=== PATIENT | female | born 1995 | race Caucasian/White ===

== ENCOUNTER 2025-05-25 08:48 | Emergency (ER) | payer MEDICAID, OTHER ==
[~2025-05-25] VITALS: Ht 157.5 cm; Wt 53.3 kg
--- NOTE | 2025-05-25 09:08 | ED.PDOC ---
GI ASSESSMENT HPI Comments A 29 YEAR OLD FEMALE PRESENTS TO THE ED WITH COMPLAINT OFBLOWER ABDOMINAL PAIN. PT HAS BEEN HAVING DIFFUSE CRAMPING ABDOMINAL PAIN FOR THE PAST 4-5 DAYS. PT HAS ASSOCIATED VOMITING AND DIARRHEA. PT DENIES SICK CONTACTS OR RECENT DIET CHANGES. PATIENT DENIES FEVER, CHILLS, SHORTNESS OF BREATH, CHEST PAIN, NAUSEA, HEADACHE, OR OTHER COMPLAINTS. NO OTHER SYMPTOMS OR MODIFYING FACTORS AT THIS TIME. PATIENT IS ALERT, ORIENTED X 4, AND HAS STEADY GAIT. Chief Complaint: Abdominal Pain Time Seen by MD: 09:06 Primary Care Provider: ANDRIA Reviewed Notes: Nurses Notes, Medications, Allergies Allergies: Coded Allergies: NO KNOWN ALLERGIES (Unverified , 06/15/15) Information Source: Patient Mode of Arrival: Ambulatory Brought in by: SELF Timing: Days Duration: Since onset, Days Prehospital treatment: None Vomitus: Food Particles Stool: Loose, Watery Severity: Moderate Recent: None Recent Hx of: None Pain Location: RLQ, LLQ, Suprapubic Associated sign and symptoms: Nausea, Vomiting, Diarrhea, Abdominal Pain Past Medical History PAST MEDICAL HISTORY: Denies Surgical History: Denies all surgeries FOSTER WINDER History: Denies all FOSTER WINDER Hx Family History Family History: Reviewed,noncontributory to illness Social History Smoker: Non-Smoker Alcohol: Denies ETOH Use Drugs: Denies Drug Use Lives In: Home Constitutional: denies: chills, diaphoresis, fatigue, fever, malaise, sweats, weakness, others EENTM: denies: blurred vision, double vision, ear bleeding, ear discharge, ear drainage, ear pain, ear ringing, eye pain, eye redness, hearing loss, mouth pain, mouth swelling, nasal discharge, nose bleeding, nose congestion, nose pain, photophobia, tearing, throat pain, throat swelling, voice changes, others Respiratory: denies: cough, hemoptysis, orthopnea, SOB at rest, shortness of breath, SOB with excertion, stridor, wheezing, others Cardiovascular: denies: chest pain, dizzy spells, diaphoresis, Dyspnea on exertion, edema, irregular heart beat, left arm pain, lightheadedness, palpitations, PND, syncope, others Gastrointestinal: reports: abdominal pain, diarrhea, nausea, vomiting; denies: abdomen distended, blood streaked bowels, constipated, dysphagia, difficulty swallowing, hematemesis, melena, poor appetite, poor fluid intake, rectal bleeding, rectal pain, others Genitourinary: denies: abnormal vagina bleeding, burning, dyspareunia, dysuria, flank pain, frequency, hematuria, incontinence, pain, , vagina discharge, urgency, others Neurological: denies: dizziness, fainting, headache, left sided numbness, left sided weakness, numbness, paresthesia, pre-existing deficit, right sided numbness, right sided weakness, seizure, speech problems, tingling, tremors, weakness, others Musculoskeletal: denies: back pain, gout, joint pain, joint swelling, muscle pain, muscle stiffness, neck pain, others Integumetry: denies: bruises, change in color, change in hair/nails, dryness, laceration, lesions, lumps, rash, wounds, others Allergic/Immunocompromised: denies: Difficulty Healing, Frequent Infections, Hives, Itching, others Hematologic/Lymphatic: denies: anemia, blood clots, easy bleeding, easy bruising, swollen glands, others Endocrine: denies: excessive hunger, excessive sweating, excessive thirst, excessive urination, flushing, intolerance to cold, intolerance to heat, unexplained weight gain, unexplained weight loss, others Psychiatric: denies: anxiety, bipolar disorder, depression, hopeless, panic dis order, schizophrenia, sleepless, suicidal, others All Other Systems: Reviewed and Negative Physical Exam General Appearance: No Apparent Distress, Normal HEENT: Normal ENT Inspection, PERRL/EOMI, Pharynx Normal, TMs Normal Neck: Full Range of Motion, Non-Tender, Normal, Normal Inspection Respiratory: Chest Non-Tender, Lungs Clear, No Accessory Muscle Use, No Respiratory Distress, Normal Breath Sounds Cardiovascular: No Edema, No JVD, No Murmur, No Gallop, Normal Peripheral Pulses, Regular Rate/Rhythm Breast Exam: Deferred Gastrointestinal: LLQ, No Organomegaly, No Pulsatile Mass, Normal Bowel Sounds, RLQ, Soft, Tenderness (LOWER ABD, NO GUARDING AND REBOUND TENDERNESS. ) Genitalia: Deferred Pelvic: Deferred Rectal: Deferred Extremities: No calf tenderness, Normal capillary refill, Normal inspection, Normal range of motion, Non-tender, No pedal edema Musculoskeletal : Apperance: Normal Neurologic: Alert, container finishing inspector II-XII nml as Tested, No Motor Deficits, Normal Affect, Normal Mood, No Sensory Deficits Cerebellar Function: Normal Reflexes: Normal Skin: Dry, Normal Color, Warm Peripheral Pulses: 2+ carotid (R), 2+ carotid (L) Lymphatic: No Adenopathy Was a procedure done? Was a procedure done?: No GI differential Dx Differential Diagnosis: Appendicitis, Cholecystitis, Constipation, Gastritis/PUD, Gastroenteritis, Inflammatory BD, Pancreatitis, UTI, Dehydration, Electrolyte Imbalance, Food Poisoning, Bacterial, Viral, Stress Ulcer X-Ray, Labs, Meds, VS Vital Signs Date Time Temp Pulse Resp B/P (MAP) Pulse Ox O2 Delivery O2 Flow Rate FiO2 05/25/25 08:50 97.1 89 15 112/77 100 97.1 Lab Test 05/25/25 09:22 Range/Units White Blood Count 12.4 H 4.4-10.8 10^3/uL Red Blood Count 4.32 4.0-5.20 10^6/uL Hemoglobin 13.0 12.2-16.2 g/dL Hematocrit 38.6 36.0-46.0 % Mean Corpuscular Volume 89.3 80.0-100.0 fL Mean Corpuscular Hemoglobin 30.0 28.0-32.0 pg Mean Corpuscular Hemoglobin Concent 33.6 32.0-36.0 g/dL Red Cell Distribution Width 12.9 11.8-14.3 % Platelet Count 272 140-450 10^3/uL Mean Platelet Volume 7.9 6.9-10.8 fL Neutrophils (%) (Auto) 86.3 H 37.0-80.0 % Lymphocytes (%) (Auto) 7.6 L 10.0-50.0 % Monocytes (%) (Auto) 5.7 0.0-12.0 % Eosinophils (%) (Auto) 0.2 0.0-7.0 % Basophils (%) (Auto) 0.2 0.0-2.0 % Neutrophils # (Auto) 10.7 H 1.6-8.6 10 ^3/uL Lymphocytes # (Auto) 0.9 0.4-5.4 10 ^3/uL Monocytes # (Auto) 0.7 0-1.3 10 ^3/uL Eosinophils # (Auto) 0 0-0.8 10 ^3/uL Basophils # (Auto) 0 0-0.2 10 ^3/uL Nucleated Red Blood Cells 0.0 % Sodium Level 137 136-145 mmol/L Potassium Level 3.8 3.5-5.1 mmol/L Chloride Level 102 98-107 mmol/L Carbon Dioxide Level 25 20-31 mmol/L Anion Gap 10 5-15 Blood Urea Nitrogen Pending Creatinine Pending Glomerular Filtration Rate Calc Pending BUN/Creatinine Ratio Pending Serum Glucose Pending Calcium Level 8.8 8.7-10.4 mg/dL Current Medications Medications (Trade) Dose Ordered Sig/Deo Route Start Time Stop Time Status Last Admin Sodium Chloride 1,000 ml @ 1,000 mls/hr Q1H ONCE IV 05/25/25 09:15 05/25/25 10:14 05/25/25 09:30 PATIENT: RAQUEL VILLAGOMEZ: [id number]: [id number] : 1995 LOC: ER ROOM / BED: / AGE / SEX: 29 / F ADM STATUS: REG ER SERVICE 3 ORDERING PHYSICIAN: GRANT BAXTER PROCEDURE(s): ABPL - CT AB PEL WO CON-NO ORAL OR IV REASON: LOWER ABD PAIN WITH N/V/D ORDER NUMBER(s): [id number], ACCESSION NUMBER(s): [id number] Exam: CT CT AB PEL WO CON-NO ORAL OR IV History: LOWER ABD PAIN WITH N/V/D Comparison Study: None Technique: Multidetector spiral CT of the abdomen and pelvis was performed from lung bases to pubic symphysis. Imaging was performed without intravenous contrast. Coronal and sagittal multiplanar reformats were obtained from the axial data set by the technologist. Radiation Dose : 1. Abdomen/Pelvis: CTDIvol 5.28 mGy, DLP 270.05 mGy*cm. Findings: Evaluation of vasculature and solid organs is limited due to lack of intravenous contrast use. Lung Bases: Lung bases are clear. Visualized portions of the heart and pericardium are unremarkable. Liver: The liver is normal in size. No focal lesions. Gallbladder and Biliary Tree: The gallbladder is unremarkable. No intrahepatic or extrahepatic biliary ductal dilatation. Spleen: Unremarkable Pancreas: The pancreas is grossly unremarkable. Adrenal Glands: Unremarkable Kidneys: Kidneys are unremarkable without calculi or hydronephrosis. GI tract: The stomach is grossly normal in appearance. There are fluid-filled small bowel loops without significant dilatation. There is scattered stool throughout the colon. No findings to suggest acute appendicitis. Peritoneum/mesentery/retroperitoneum. No evidence of free intraperitoneal air. There is moderate pelvic free fluid. No evidence of suspicious lymphadenopathy. Abdominal Wall: Unremarkable. Vasculature: The visualized abdominal aorta is normal in size and caliber. Evaluation of abdominal and pelvic vessels is limited due to lack of intravenous contrast. Urinary Bladder: Grossly unremarkable for degree of distention. Pelvic Organs: Uterus is unremarkable. There is a left adnexal cystic mass measuring 3.7 by 3.3 cm. There is a right adnexal cystic mass measuring 2.3 by 1.8 cm. Musculoskeletal: No aggressive focal bony lesions, acute fractures or dislocati on. IMPRESSION: 1. Bilateral adnexal cystic masses measuring up to 3.7 cm on the left and 2.3 cm on the right. Moderate volume pelvic free fluid. Findings may reflect sequelae of a ruptured hemorrhagic cyst. Pelvic ultrasound recommended. 2. Fluid-filled small bowel loops. This is a fairly nonspecific finding. Enteritis is not excluded. No bowel obstruction. ATED BY: FARTUN BOLANOS MD DICTATED DATE/TIME: 05/25/25943 SIGNED BY: FARTUN BOLANOS MD SIGNED DATE/TIME: 05/25/25943 CC: X-Ray, Labs, Meds, VS Comment COURSE: EXTERNAL MEDICAL RECORDS REVIEWED: [NONE] INDEPENDENT HISTORIANS: [NONE] SOCIAL DETERMINANTS OF HEALTH: [NONE] LABS ORDERED: UA, CBC, BMP, REVIEWED AND INTERPRETED RESULTS: NONE IMAGING ORDERED: CT ABD PELVIS NON-CON TREATMENTS ORDERED: IV FLUIDS, ZOFRAN 4 MG IV, PEPCID 20MG IVP AND TORADOL 30MG IVP PROCEDURES PERFORMED: NONE CRITICAL CARE TIME: NONE I HAVE DISCUSSED THE PATIENT WITH THE ATTENDING PHYSICIAN DR. STERLING AND HE AGREES WITH THE PATIENT'S PLAN OF CARE AND DISPOSITION. BASED ON HISTORY OF PRESENT ILLNESS, AND PHYSICAL EXAM, PATIENT WILL BE DISCHARGED HOME. DISCUSSED PLAN FOR DISCHARGE HOME WITH RX [BENTYL AND ZOFRAN ]. MEDICATION WARNINGS GIVEN. SHARED DECISION MAKING: DISCUSSED WITH PATIENT THAT THEIR WORKUP WAS NORMAL. PATIENT INSTRUCTED TO FOLLOW UP WITH PRIMARY CARE PROVIDER IN 1-2 DAYS FOR RE- EVALUATION OF SYMPTOMS. PATIENT VERBALIZES UNDERSTANDING TO RETURN TO ED FOR NEW OR WORSENING SYMPTOMS OR IF FOLLOW UP WITH PCP CANNOT BE OBTAINED. PATIENT FEELS COMFORTABLE GOING HOME AT THIS TIME. ALL QUESTIONS ADDRESSED AT TIME OF DISCHARGE. Time of 1ST Reevaluation: 10:00 Reevaluation 1ST: Improved Patient Education/Counseling: Diagnosis, Treatment, Need For Follow Up Family Education/Counseling: Diagnosis, Treatment, No Family Present Medical Screening: No EMC Exist At This Time SEPSIS Sepsis Screen Date sepsis recognized/suspect: May 25, 2025 Time Sepsis recognized/suspect: 851 Recent Procedure: No On Antibiotic Therapy: No Respiratory Rate >20: No Heart Rate >90: No Temp<36 C (96.8 F) or >38.3 C: No SBP <90 or MAP <65 mmHG: No New Acute Mental Status Change: No Is the patient on CPAP, BIPAP,: No Physician Orders Urinalysis (05/25/25 09:04) Ct Ab Pel Wo Con-No Oral Or Iv (05/25/25 09:04) Basic Metabolic Panel (05/25/25 09:04) Heplock Iv (05/25/25 ) Sodium Chloride 0.9% (05/25/25 09:15) Vital Signs Date Time Temp Pulse Resp B/P (MAP) Pulse Ox O2 Delivery O2 Flow Rate FiO2 05/25/25 08:50 97.1 89 15 112/77 100 97.1 Laboratory Tests Test 05/25/25 09:22 White Blood Count 12.4 10^3/uL (4.4-10.8) H Medications Medications Dose Ordered Sig/Deo Route Start Time Stop Time Status Last Admin Dose Admin Sodium Chloride 1,000 ml @ 1,000 mls/hr Q1H ONCE IV 05/25/25 09:15 05/25/25 10:14 05/25/25 09:30 Departure 1 Departure Time of Disposition: 10:01 Impression: Primary Impression: Acute gastroenteritis Additional Impression: Adnexal cyst Disposition: 01 HOME / SELF CARE / HOMELESS Condition: Stable Additional Instructions: INSTRUCTIONS: FOLLOW-UP WITH PCP IN 1 TO 2 DAYS. TAKE MEDICATIONS PRESCRIBED. RETURN TO ED FOR ANY NEW OR WORSENING SYMPTOMS. e-Prescriptions Ondansetron Odt 4MG Tab (ZOFRAN PO) 4 Mg Tb 4 MG PO BID, #20 TAB ODT TAB-DISSOLVE IN MOUTH, THEN SWALLOW Prov: GRANT BAXTER 05/25/25 Dicyclomine Hcl (Dicyclomine Hcl) 20 Mg Tab 1 TAB PO BID, #30 TAB Prov: GRANT BAXTER 05/25/25 Discharged With: Self Critical Care Note Critical Care Time?: No Stability Stability form required: No Heart Score Heart Score: Heart Score Response (Comments) Value History N/A 0 EKG N/A 0 Age N/A 0 Risk Factors N/A 0 Troponin N/A 0 Total 0 I personally scribed for GRANT BAXTER ([email or web address]) on 05/25/25 at 09:08. Electronically submitted by Adali Smyth ([email or web address]). I personally scribed for GRANT BAXTER ([email or web address]) on 05/25/25 at 09:11. Elect ronically submitted by Adali Smyth ([email or web address]). GRANT BAXTER May 25, 2025 09:08
[2025-05-25] MEDS: SODIUM CHLORIDE 0.9% 1,000 ML IV ONE (09:30)
[2025-05-25 09:35] LABS: Hematocrit 38.6 % (36.0-46.0); Hemoglobin 13.0 g/dL (12.2-16.2); Mean Corpuscular Hemoglobin 30.0 pg (28.0-32.0); Mean Corpuscular Volume 89.3 fL (80.0-100.0); Nucleated Red Blood Cells % 0.0 %
[2025-05-25 09:45] LABS: Chloride 102 mmol/L (98-107); Potassium 3.8 mmol/L (3.5-5.1); Sodium 137 mmol/L (136-145)
[2025-05-25 09:46] LABS: Anion Gap 10 (5-15); Carbon Dioxide 25 mmol/L (20-31)
[2025-05-25] MEDS: KETOROLAC TROMETH 30 MG/ML 1ML VIAL IV ONE (09:46)
[2025-05-25] MEDS: ONDANSETRON HCL 4 MG/2 ML VIAL IV ONE (09:46)
[2025-05-25] MEDS: FAMOTIDINE (10MG/ML) 2ML VL IV ONE (09:46)
--- NOTE | 2025-05-25 09:46 | DVH ---
Exam: CT CT AB PEL WO CON-NO ORAL OR IV History: LOWER ABD PAIN WITH N/V/D Comparison Study: None Technique: Multidetector spiral CT of the abdomen and pelvis was performed from lung bases to pubic symphysis. Imaging was performed without intravenous contrast. Coronal and sagittal multiplanar reformats were obtained from the axial data set by the technologist. Radiation Dose : 1. Abdomen/Pelvis: CTDIvol 5.28 mGy, DLP 270.05 mGy*cm. Findings: Evaluation of vasculature and solid organs is limited due to lack of intravenous contrast use. Lung Bases: Lung bases are clear. Visualized portions of the heart and pericardium are unremarkable. Liver: The liver is normal in size. No focal lesions. Gallbladder and Biliary Tree: The gallbladder is unremarkable. No intrahepatic or extrahepatic biliary ductal dilatation. Spleen: Unremarkable Pancreas: The pancreas is grossly unremarkable. Adrenal Glands: Unremarkable Kidneys: Kidneys are unremarkable without calculi or hydronephrosis. GI tract: The stomach is grossly normal in appearance. There are fluid-filled small bowel loops without significant dilatation. There is scattered stool throughout the colon. No findings to suggest acute appendicitis. Peritoneum/mesentery/retroperitoneum. No evidence of free intraperitoneal air. There is moderate pelvic free fluid. No evidence of suspicious lymphadenopathy. Abdominal Wall: Unremarkable. Vasculature: The visualized abdominal aorta is normal in size and caliber. Evaluation of abdominal and pelvic vessels is limited due to lack of intravenous contrast. Urinary Bladder: Grossly unremarkable for degree of distention. Pelvic Organs: Uterus is unremarkable. There is a left adnexal cystic mass measuring 3.7 by 3.3 cm. There is a right adnexal cystic mass measuring 2.3 by 1.8 cm. Musculoskeletal: No aggressive focal bony lesions, acute fractures or dislocation. IMPRESSION: 1. Bilateral adnexal cystic masses measuring up to 3.7 cm on the left and 2.3 cm on the right. Moderate volume pelvic free fluid. Findings may reflect sequelae of a ruptured hemorrhagic cyst. Pelvic ultrasound recommended. 2. Fluid-filled small bowel loops. This is a fairly nonspecific finding. Enteritis is not excluded. No bowel obstruction.
[2025-05-25 09:47] LABS: Calcium 8.8 mg/dL (8.7-10.4)
[2025-05-25 09:52] LABS: BUN/Creatinine Ratio 12.5 (10.0-20.0); Glucose 96 mg/dL (74-106)
[2025-05-25 09:54] LABS: Blood Urea Nitrogen 9 mg/dL (9-23)
[2025-05-25] MEDS ORDERED: DICY10CA PO (10:04)
[2025-05-25] MEDS ORDERED: DICY20TA PO (10:04)
[2025-05-25] MEDS ORDERED: ZOFR4T PO (10:04)
[2025-05-25 10:11] VITALS: BP 115/64; PULSE 80; RESP 18; TEMP 99.4; O2SAT 100
[2025-05-25 10:31] LABS: Urine Protein, UAD TRACE (Negative)
== END 2025-05-25 10:12 | disposition home or self-care (01) ==
LOC: ER 08:48
DX: K52.9 Noninfective gastroenteritis and colitis, unspecified (principal); E27.8 Other specified disorders of adrenal gland
CPT/HCPCS: 36415; 74176; 80048; 81001; 85025; 96361; 96374; 96375; 99285; J1885; J2405; J3490; J7030